=== PATIENT | male | born 2000 | race Asian ===

== ENCOUNTER 2018-08-16 07:06 | Emergency (ER) | payer BC ==
[~2018-08-16] VITALS: Ht 180.3 cm; Wt 81.0 kg
[2018-08-16 07:08] VITALS: BP 126/70
[2018-08-16] MEDS ORDERED: MULT-124 PO (07:23)
--- NOTE | 2018-08-16 07:55 | NUR ---
Patient/Caregiver given discharge instructions and they have confirmed that they understand the instructions. Patient ambulatory with steady gait.
== END 2018-08-16 07:56 | disposition home or self-care (01) ==
LOC: ED 07:33
DX: G89.11 Acute pain due to trauma (principal); M25.511 Pain in right shoulder; W01.0XXA Fall on same level from slipping, tripping and stumbling without subsequent striking against object, initial encounter; Y93.89 Activity, other specified; Y92.410 Unspecified street and highway as the place of occurrence of the external cause; Y99.8 Other external cause status
CPT/HCPCS: 99283